=== PATIENT | male | born 1965 | race Caucasian/White ===

== ENCOUNTER 2020-03-04 21:38 | Emergency (ER) | payer BC ==
[~2020-03-04] VITALS: Ht 180.3 cm; Wt 90.7 kg
[2020-03-04 21:45] VITALS: BP 135/85
== END 2020-03-05 01:27 | disposition left against medical advice (07) ==
LOC: ER 21:38
DX: M79.5 Residual foreign body in soft tissue (principal); Z53.21 Procedure and treatment not carried out due to patient leaving prior to being seen by health care provider
CPT/HCPCS: 70360